=== PATIENT | male | born 1990 | race Caucasian/White ===

== ENCOUNTER → 2018-11-25 | Outpatient (CLI) | payer BC ==
--- NOTE | 2018-11-25 09:25 | US ---
EXAMINATION TYPE: US abdomen complete DATE OF EXAM: 11/25/2018 COMPARISON: NONE CLINICAL HISTORY: R74.8 Elevated LFTS. EXAM MEASUREMENTS: Liver Length: 14.8 cm Gallbladder Wall: 0.2 cm CBD: 0.3 cm Spleen: 13.8 cm Right Kidney: 11.6 x 4.7 x 4.6 cm Left Kidney: 13.0 x 5.9 x 5.8 cm Morbidly obese patient with extensive overlying bowel gas. Pancreas: Obscured by bowel gas Liver: heterogeneous, hypoechoic area noted in left lobe that appears to be a ligament Gallbladder: wnl Evidence for sonographic Rangel's sign: No CBD: wnl Spleen: enlarged Right Kidney: Inferior pole obscured by bowel gas Left Kidney: measures large Upper IVC: wnl Abd Aorta: wnl as visualized partially obscured by bowel gas IMPRESSION: 1. The liver is heterogeneous correlate for hepatitis, hepatocellular disease or fatty infiltration. 2. Splenomegaly.
== END | disposition home or self-care (01) ==
LOC: RADUSWWP 07:50
PROVIDERS: ATTEND Nurse Practitioner Adult Health
DX: R93.2 Abnormal findings on diagnostic imaging of liver and biliary tract (principal); R74.8 Abnormal levels of other serum enzymes
CPT/HCPCS: 76700